=== PATIENT | male | born 1985 | race Two or more races ===

== ENCOUNTER 2016-04-20 09:39 | Emergency (ER) | payer MEDICAID ==
[2016-04-20 10:03] VITALS: BP 123/76; PULSE 67; RESP 18; TEMP 98.1; O2SAT 94
[2016-04-20] MEDS ORDERED: IBUPROFEN 800 MG TAB PO ONE (10:35)
--- NOTE | 2016-04-20 10:40 | UCPHY ---
H & P Time Seen by Provider: 04/20/16 10:05 Patient Type: New HPI/ROS: HPI Back pain. 30-year-old male by private vehicle. Patient reports he has been shoveling snow for the last 2 days. He complains of bilateral mid to lower back pain for the last 12-24 hours. Slightly worse with bending forward. Slightly worse on the left side. No bowel or bladder incontinence. No history of malignancy. No fever. No numbness or weakness in his lower extremities. ROS: Constitutional: No fever, no chills. No weakness. Musculoskeletal: As above. No neck pain. No extremity pain. Skin: No rashes. Neurological: No focal weakness or altered sensation. Past medical history: Appendectomy. [facility]. Social history: Here by himself. Physical Exam: General Appearance: Alert, no distress. This patient is responding to questions appropriately and in full sentences. This patient appears well- hydrated and well-nourished. Eyes: Pupils equal and round no pallor or injection. No lid edema, erythema or injection. Back exam: No midline thoracic, lumbar, sacral tenderness on palpation. Vague tenderness on palpation paraspinal soft tissues from mid thoracic spine to mid lumbar spine. Slightly greater on the left side versus the right side. No soft tissue changes. Negative same side and cross side straight leg raise test. He is neurologically intact in all myotomes in dermatomes of the bilateral lower extremities. The bilateral lower extremities are symmetrical in neurovascularly intact. Gastrointestinal: Abdomen is soft and nontender, no masses, bowel sounds normal. No focal tenderness at McBurney's point. No Anderson sign. Neurological: Motor sensory function is grossly intact. Cranial nerves are normal. Gait is normal. Skin: Warm and dry, no rashes. Extremities are symmetrical. All joints range without pain or impingement. Psychiatric: No agitation. No depression. Database: EKG: Imaging: Procedures: Emergency department course: After my evaluation, the patient was given 600 mg of ibuprofen. Plan will be to treat him with 3 days of high-dose ibuprofen and Flexeril. He is to follow up with his primary care physician for re-evaluation on Friday or Friday of this week. He is to return to Urgent Care for re-evaluation if his pain is persisting greater than 3 days. He endorses this plan. He feels comfortable going home. He was discharged in good condition. Differential Diagnosis: The differential diagnosis on this patient includes but is not limited to thoracic/lumbar strain. Epidural compression syndrome, acute radiculopathy, epidural abscess, AAA, fracture, subluxation, dislocation unlikely. This represents a partial list of diagnoses considered. These considerations are based on history, physical exam, past history and reassessment. Smoking Status: Never smoked Constitutional: Initial Vital Signs Temperature (C) 36.7 C 04/20/16 09:58 Heart Rate 67 04/20/16 09:58 Respiratory Rate 18 04/20/16 09:58 Blood Pressure 123/76 H 04/20/16 09:58 O2 Sat (%) 94 04/20/16 09:58 O2 Delivery Mode Room Air Allergies/Adverse Reactions: No Known Allergies Allergy (Verified 04/20/16 09:57) Home Medications: Medication Instructions Recorded Cyclobenzaprine [Flexeril 10 MG 10 mg PO TID #9 tab 04/20/16 (*)] MDM/Departure - Depart Disposition: Home, Routine, Self-Care Clinical Impression: Back pain Condition: Good Instructions: Back Pain (ED) Additional Instructions: Read and follow provided instructions. Follow-up with your primary care physician in 2-3 days for re-evaluation. Take medication as prescribed. Ibuprofen dosin mg every 6 hours with meals for the next 3 days only. Return to the emergency department or urgent care for worsening pain, bowel or bladder incontinence, numbness or weakness in your lower extremities, fever or other serious concerns. Prescriptions: Cyclobenzaprine [Flexeril 10 MG (*)] 10 mg PO TID #9 tab Referrals: [facility],. [Primary Care Provider] - As per Instructions - PQRS PQRS Measurement: Not applicable.
[2016-04-20] MEDS ORDERED: IBUPROFEN 200 MG TAB PO ONE (10:45)
== END 2016-04-20 10:51 | disposition home or self-care (01) ==
LOC: CED 09:39
DX: M54.9 Dorsalgia, unspecified (principal)
CPT/HCPCS: 99203-PO; G0463-PO

== ENCOUNTER 2016-05-04 12:02 | Emergency (ER) | payer MEDICAID ==
[2016-05-04 12:40] VITALS: BP 119/70; PULSE 88; RESP 16; TEMP 97.3; O2SAT 95
[2016-05-04] MEDS ORDERED: LETS SOLN TOPICAL 1 EA SYR TP ONE (12:41)
--- NOTE | 2016-05-04 12:44 | UCPHY ---
H & P Patient Type: Established HPI/ROS: CHIEF COMPLAINT: Left cheek laceration. HISTORY OF PRESENT ILLNESS: The patient is a 30-year-old male who presents after slipping on ice and lacerating his left cheek on broken glass earlier this morning. He is unsure if there is a piece of glass still stuck in the wound. He denies loss of consciousness. He has no pain with range of motion of his jaw. He denies other complaints. He is unsure about his tetanus status. He also notes that he has mild to moderate left lateral, posterior neck discomfort - no numbness or tingling paresthesias. There is no stinger involved at the time of the impact REVIEW OF SYSTEMS: Eyes: No diplopia. ENT: No sore throat. Cardiovascular: He did feel a little lightheaded after the impacted you initially started up but has since felt fine and did not have any prodrome prior to the event Gastrointestinal: No nausea vomiting or diarrhea. No abdominal pain. Musculoskeletal: No back pain. Neurological: No headache. Past Medical/Surgical History: Denies. Social History: Nonsmoker. Smoking Status: Never smoked Physical Exam: General Appearance: Alert, no distress. Afebrile. Normal phonation. No respiratory distress. Neurological: Ox3. No motor weakness. Sensation intact. Gait nl. Neck: Mild lateral mass tenderness. No posterior spinous tenderness or step- off. Ground level fall. Skin: Warm and dry, no rashes. There is a 2 cm v-shaped laceration of the midportion of left cheek with the tip of it currently in. Musculoskeletal: No joint swelling. Psychiatric: Patient is oriented X 3, there is no agitation Constitutional: Initial Vital Signs Temperature (C) 36.3 C 05/04/16 12:34 Heart Rate 88 05/04/16 12:34 Respiratory Rate 16 05/04/16 12:34 Blood Pressure 119/70 05/04/16 12:34 O2 Sat (%) 95 05/04/16 12:34 O2 Delivery Mode Room Air Allergies/Adverse Reactions: No Known Allergies Allergy (Verified 05/04/16 12:33) Home Medications: Medication Instructions Recorded NK [No Known Home Meds] 05/04/16 Medical Decision Making Procedures: Procedure: Laceration repair. Verbal consent was obtained from the patient. The 2 cm laceration on the left cheek was anesthetized in the usual fashion, with direct infiltration of 1% xylocaine with epinephrine. The wound was irrigated, draped, probed and explored to its base with a gloved finger, as well as forceps. There were no deep structures involved. No foreign body found. No tendon injury was identified. Patient warned regarding potential for retained foreign body. The wound was repaired with 6 0 nylon using pursestring as well as running sutures.. The wound repair was simple . The procedure was performed by myself. Differential Diagnosis: Cervical spine cleared by nexus criteria - Data Points Medications Given: Discontinued Medications Tetracaine/Epinephrine/Lidocaine (Lets Soln Topical) 1 ea TP EDNOW ONE Stop: 05/04/16 12:42 Last Admin: 05/04/16 13:05 Dose: 1 ea Departure - Departure Disposition: Home, Routine, Self-Care Clinical Impression: Laceration of left cheek Qualifiers: Encounter type: initial encounter Qualifier Code: (S01.412A) Laceration without foreign body of left cheek and temporomandibular area, initial encounter Condition: Good Instructions: Laceration (ED) Additional Instructions: Keep wound clean with hydrogen peroxide and apply Bacitracin ointment three times daily. Avoid prolonged immersion of stitches in water. Do not shave any part of your face while the sutures are in place. Return in 5 days for suture removal. Return to Urgent Care or the emergency department if you develop a fever, signs of infection, redness or discharge around the wound, or other serious worsening of condition. Referrals: [facility] [Outside] - As per Instructions - PQRS PQRS Measurement: Not applicable Report Scribed for: Mani Garay Report Scribed by: Tomás Norwood Date of Report: 05/04/16 Time of Report: 12:44
[2016-05-04] MEDS ORDERED: TDAP ADULT 0.5 ML INJ (BOOSTRIX) IM ONE (13:39)
== END 2016-05-04 13:50 | disposition home or self-care (01) ==
LOC: CED 12:02
PROC: 0HQ1XZZ Repair Face Skin, External Approach (ICD-10-PCS; principal; 2016-05-04)
DX: S01.412A Laceration without foreign body of left cheek and temporomandibular area, initial encounter (principal); W00.0XXA Fall on same level due to ice and snow, initial encounter; W25.XXXA Contact with sharp glass, initial encounter
CPT/HCPCS: 12011-PO; 99213-PO; G0463-PO

== ENCOUNTER 2016-07-15 08:18 | Emergency (ER) | payer MEDICAID ==
[2016-07-15 08:34] VITALS: PULSE 82; TEMP 98.6; O2SAT 95
--- NOTE | 2016-07-15 09:01 | UCPHY ---
H & P Patient Type: Established Chief Complaint Nursing Narrative: left sided lower back pain no trauma. started on the right side last , now that is better but the left side is 10/10 pain now Time Seen by Provider: 07/15/16 08:44 HPI/ROS: CHIEF COMPLAINT: Low back pain HISTORY OF PRESENT ILLNESS: Patient is a 30-year-old man who comes to the Urgent Care complaining of left low back pain. He states that 4 days ago he had pain in his right lower back with that is now resolved and is now in his left lower back. He denies any significant injury or trauma. 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 He does not have any radiation of the pain. No bowel or bladder abnormalities. No history of malignancy or IV drug abuse. Fevers. No urinary symptoms. REVIEW OF SYSTEMS: Constitutional: denies: chills, fever, recent illness, recent injury EENTM: denies: blurred vision, double vision, nose congestion Respiratory: denies: cough, shortness of breath Cardiac: denies: chest pain, irregular heart rate, lightheadedness, palpitations Gastrointestinal/Abdominal: denies: abdominal pain, diarrhea, nausea, vomiting, blood streaked stools Genitourinary: denies: dysuria, frequency, hematuria, pain Musculoskeletal: See HPI Skin: denies: lesions, rash, jaundice, bruising Neurological: denies: headache, numbness, paresthesia, tingling, dizziness, weakness Hematologic/Lymphatic: denies: blood clots, easy bleeding, easy bruising Immunologic/allergic: denies: HIV/AIDS, transplant EXAM: GENERAL: Well-appearing, well-nourished and in no acute distress. HEAD: Atraumatic, normocephalic. EYES: Pupils equal round and reactive to light, extraocular movements intact, sclera anicteric, conjunctiva are normal. ENT: TMs normal, nares patent, oropharynx clear without exudates. Moist mucous membranes. NECK: Normal range of motion, supple without lymphadenopathy or JVD. LUNGS: Breath sounds clear to auscultation bilaterally and equal. No wheezes rales or rhonchi. HEART: Regular rate and rhythm without murmurs, rubs or gallops. ABDOMEN: Soft, nontender, normoactive bowel sounds. No guarding, no rebound. No masses appreciated. BACK: Left low back pain/gluteal pain. No tenderness to palpation. Pain with movement. EXTREMITIES: Normal range of motion, no pitting or edema. No clubbing or cyanosis. NEUROLOGICAL: Cranial nerves II through XII grossly intact. Normal speech, normal gait. 5/5 strength, normal movement in all extremities, normal sensation PSYCH: Normal mood, normal affect. SKIN: Warm, dry, normal turgor, no visible rashes or lesions. Source: Patient - Personal History Current Tetanus/Diphtheria Vaccine: Yes Current Tetanus Diphtheria and Acellular Pertussis (TDAP): Yes Tetanus Vaccine Date: WITHIN 10 YRS - Medical/Surgical History Hx Asthma: No Hx Chronic Respiratory Disease: No Hx Diabetes: No Hx Cardiac Disease: No Hx Renal Disease: No Hx Cirrhosis: No Hx Alcoholism: No Hx HIV/AIDS: No Hx Splenectomy or Spleen Trauma: No Other PMH: Med hx-Asthma during summer with grass. Surg-appy - Family History Significant Family History: No pertinent family hx - Social History Smoking Status: Never smoked Alcohol Use: Sober Drug Use: None Constitutional: Initial Vital Signs Temperature (C) 37 C 07/15/16 08:28 Heart Rate 82 07/15/16 08:28 Respiratory Rate 20 07/15/16 08:28 Blood Pressure 153/65 H 07/15/16 08:28 O2 Sat (%) 95 07/15/16 08:28 O2 Delivery Mode Room Air Allergies/Adverse Reactions: No Known Allergies Allergy (Verified 07/15/16 08:28) Home Medications: Medication Instructions Recorded Metaxalone [Skelaxin 800 mg (*)] 800 mg PO TID PRN #12 tab 07/15/16 Medical Decision Making Procedures: Trigger point injection: The patient was injected with 10 cc of 0.5% bupivacaine to his left lower back spina rectus muscle. He and satisfactory improvement. ED Course/Re-evaluation: This patient's symptoms are consistent with musculoskeletal low back pain. Treat him with a trigger point injection with good success. I will prescribe him muscle relaxants and he is asking for a few days off work. He is happy with this and declines further workup or testing at this point. No indication for imaging. No red flags for spinal cord injury. Differential Diagnosis: Partial list of the Differential diagnosis considered include but were not limited to; low back pain, muscle strain and although unlikely based on the history and physical exam, I also considered radiculopathy, cauda equina syndrome, infection, diskitis, fracture, tumor or mass, urinary tract infection , kidney stone. I discussed these differential diagnoses and the plan with the patient as well as the usual and expected course. The patient understands that the diagnosis is provisional and that in medicine we are not always correct and that further workup is often warranted. Usual and customary warnings were given. All of the patient's questions were answered. The patient was instructed to return to the emergency department should the symptoms at all worsen or return, otherwise to followup with the physician as we discussed. Departure - Departure Disposition: Home, Routine, Self-Care Clinical Impression: Low back pain Qualifiers: Chronicity: acute Back pain laterality: left Sciatica presence: without sciatica Qualified Code(s): M54.5 - Low back pain Condition: Fair Instructions: Low Back Strain (ED) Referrals: [facility],. [Primary Care Provider] - As per Instructions Stand Alone Forms: Work Excuse Prescriptions: Metaxalone [Skelaxin 800 mg (*)] 800 mg PO TID PRN #12 tab PRN Reason: Spasms - PQRS PQRS Measurement: Not applicable
[2016-07-15 09:10] VITALS: BP 143/71; RESP 18
== END 2016-07-15 09:17 | disposition home or self-care (01) ==
LOC: CED 08:18
PROC: 3E023BZ Introduction of Anesthetic Agent into Muscle, Percutaneous Approach (ICD-10-PCS; principal; 2016-07-15)
DX: M54.5 Low back pain (principal)
CPT/HCPCS: 20552-PO; 99214-PO; G0463-PO

== ENCOUNTER 2016-07-18 19:26 | Emergency (ER) | payer MEDICAID ==
[2016-07-18 19:46] VITALS: BP 135/72; PULSE 87; RESP 18; TEMP 98.4; O2SAT 96
[2016-07-18] MEDS ORDERED: IBUPROFEN 200 MG TAB PO ONE (20:11)
--- NOTE | 2016-07-18 20:57 | UCPHY ---
H & P Time Seen by Provider: 07/18/16 19:58 Patient Type: Established HPI/ROS: This patient returns with low back pain described as achy, bilateral lumbar paraspinous location left-sided more than right. The pain worsens when he walks or stands. He reports that is severe intensity. He was seen here in the clinic on July 15, 3 days prior to this visit with trigger point injection by Dr. Yoel sullivan on Skelaxin. The patient reports that he had partial relief of discomfort initially after that visit but reports the pain is recurred and more severe now. He however has not taken any medication today. He explains that he did not feel that he was getting relief from Skelaxin or ibuprofen. His last dose of ibuprofen 400 mg yesterday. 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 He was doing this prior to the onset of the back pain is not certain that was directly related to that work. The pain does not radiate. ROS: No fevers or chills. He reports no HEENT complaints. No pulmonary complaints. Cardiovascular: No belly pain. GI: No nausea vomiting. : No hematuria. Neuro: No numbness tingling or focal weakness. Integumentary: No skin rash. 10 point ROS is otherwise negative. Past Medical/Surgical History: Otherwise healthy exception of the recent low back strain visit here to the clinic on 07/15/2016. Smoking Status: Never smoked Physical Exam: Physical Exam Vital signs are normal. General: No acute distress HEENT: Atraumatic. Eyes: Pupils equal and react to light. Extraocular motions are intact. Lungs: No respiratory distress. Cardiac: Brisk capillary refill is intact throughout. Pulses are 2+ and symmetric in the affected extremity. Back: No significant midline tenderness so does have mild L4-5 region midline tenderness. He has more tenderness in the paraspinous regions bilaterally with paraspinous muscular spasm left more than right. He has limited range of motion in forward flexion only bending to about 20 before having increased pain. He had extend without much difficulty, and lateral flex without difficulty. Straight leg raise is negative bilaterally. He is able to sit up on his own accord without significant midline back pain Abdomen: Soft, nontender, no pulsatile masses Skin: No rash or pallor. Specifically, there is no erythema to the low back area or other rash. Neuro: Alert and oriented x3 . He has normal light touch sensory exam bilateral lower extremities, 5/5 strength in great toe dorsiflexion plantar flexion bilaterally. 2+ symmetric patellar and Achilles DTRs bilaterally - no sensorimotor deficits. ROS: Low back strain question repetitive versus isolated incident, disc herniation, paraspinous abscess, doubt kidney stone. Constitutional: Initial Vital Signs Temperature (C) 36.9 C 07/18/16 19:44 Heart Rate 87 07/18/16 19:44 Respiratory Rate 18 07/18/16 19:44 Blood Pressure 135/72 H 07/18/16 19:44 O2 Sat (%) 96 07/18/16 19:44 O2 Delivery Mode Room Air Allergies/Adverse Reactions: No Known Allergies Allergy (Verified 07/18/16 19:44) Home Medications: Medication Instructions Recorded Metaxalone [Skelaxin 800 mg (*)] 800 mg PO TID PRN #12 tab 07/15/16 Advil 07/18/16 Ibuprofen [Motrin (*)] 600 mg PO Q6 PRN #30 tab 07/18/16 Methocarbamol [Robaxin 750 mg (*)] 750 - 1,500 mg PO QID PRN #30 tab 07/18/16 traMADol [Ultram 50 mg (*)] 50 - 100 mg PO Q4 PRN #20 tab 07/18/16 MDM/Departure - MDM Diagnostics: Lumbar spine x-ray: Normal by my interpretation with exception of loss of lordosis and very minimal anterior endplate narrowing to the L1-T12 Dr. Low- radiologist read this as likely the developmental normal variant rather than compression fracture. Medications Given: Discontinued Medications Diazepam (Valium 5 Mg Prepack#4) 1 btl TAKEHOME EDNOW ONE Stop: 07/18/16 21:08 Last Admin: 07/18/16 21:07 Dose: 1 btl Ibuprofen (Motrin) 600 mg PO EDNOW ONE Stop: 07/18/16 20:12 Last Admin: 07/18/16 20:32 Dose: 600 mg ED Course/Re-evaluation: I counseled patient regarding low back stretches and strengthening exercises and counseled regarding low back strain. Will try him on methocarbamol and tramadol as well as ibuprofen. No evidence of cauda equina, infectious etiology or other concerning findings. - Depart Disposition: Home, Routine, Self-Care Clinical Impression: Repetitive strain injury of lower back Qualifiers: Encounter type: initial encounter Qualified Code(s): S39.012A - Strain of muscle, fascia and tendon of lower back, initial encounter Condition: Good Instructions: Diazepam (By mouth), Low Back Strain (ED) Additional Instructions: DX: Low back strain Plan: Ibuprofen 400-600 mg per 6 hours regularly for the next week then as needed. Methocarbamol muscle relaxants as needed. Tramadol or Tylenol as needed for pain. No driving alcohol or work on methocarbamol or tramadol Starts daily stretches prior to taking muscle relaxants and tramadol in the morning. 3-5 minutes each of: "Butterfly stretch," "Sphinx stretch", "pigeon stretch", and hamstring stretch. Avoid lifting more than 5-10 pounds until symptoms improve. Call your primary care physician for a followup appointment in 3-7 days. Go to the emergency department for worsening of your symptoms despite the treatment plan. Stand Alone Forms: Work Limited Duty, Work Excuse Prescriptions: Ibuprofen [Motrin (*)] 600 mg PO Q6 PRN #30 tab PRN Reason: Pain Methocarbamol [Robaxin 750 mg (*)] 750 - 1,500 mg PO QID PRN #30 tab PRN Reason: Muscle Spasms traMADol [Ultram 50 mg (*)] 50 - 100 mg PO Q4 PRN #20 tab PRN Reason: back pain Referrals: Hanna Mendez MD [Medical Doctor] - As per Instructions - PQRS PQRS Measurement: NA
[2016-07-18] MEDS ORDERED: DIAZEPAM 5 MG PREPACK#4 BTL TAKEHOME ONE ×2 (21:05→21:07)
== END 2016-07-18 21:08 | disposition home or self-care (01) ==
LOC: CED 19:26
DX: S39.012A Strain of muscle, fascia and tendon of lower back, initial encounter (principal); X58.XXXA Exposure to other specified factors, initial encounter
CPT/HCPCS: 72100-PO; 99214-PO; G0463-PO

== ENCOUNTER 2016-12-12 10:14 | Inpatient (IN) | payer MEDICAID ==
[2016-12-12] MEDS ORDERED: HYDROmorphONE/DILAUDID 1 MG/ML SYR IVP ONE ×2 (10:23→11:36)
[2016-12-12] MEDS ORDERED: NS 1,000 ML IV ONE (10:23)
[2016-12-12] MEDS ORDERED: ONDANSETRON 4 MG/2 ML VIAL IVP ONE (10:23)
[2016-12-12] MEDS ORDERED: FAMOTIDINE 20 MG in NS 100 ML IV ONE (10:23)
--- NOTE | 2016-12-12 10:28 | EDPHY ---
H & P Time Seen by Provider: 12/12/16 10:19 HPI/ROS: HPI Abdominal pain. 31-year-old male by private vehicle. This patient complains of worsening mid abdominal pain since 2:00 a.m.. He describes the pain is deep, cramping and throughout his abdomen. He describes it as constant. No back pain. He has had nausea but no vomiting. Last meal was last night at approximately 8:00 p.m.. Last bowel movement was yesterday. No associated diarrhea. No bloody or melenic stool. He has had this abdominal pain in the past and has been seen in the emergency department for but not here. He denies a history of peptic ulcer disease. He has had an appendectomy. ROS: Constitutional: No fever, no chills. No weakness. Eyes: No discharge. No changes in vision. ENT: No sore throat. No nasal congestion or rhinorrhea. Respiratory: No cough. No shortness of breath. Cardiac: No chest pain, no palpitations. Gastrointestinal: As above. Genitourinary: No hematuria. No dysuria or increased frequency with urination. Musculoskeletal: No back pain. No neck pain. No myalgias or arthralgias. Skin: No rashes. Neurological: No headache. No focal weakness or altered sensation. Past medical history: Seasonal asthma. Appendectomy. Primary care is at [facility]. Social history: Nonsmoker. Denies alcohol. Denies IV drugs or street drugs. Physical Exam: General Appearance: Alert, he appears uncomfortable. This patient is responding to questions appropriately and in full sentences. This patient appears well-hydrated and well-nourished. Eyes: Pupils equal and round no pallor or injection. No lid edema, erythema or injection. Respiratory: There are no retractions, lungs are clear to auscultation with good air movement bilaterally. Cardiovascular: Regular rate and rhythm. No murmur. Gastrointestinal: Abdomen is soft with vague tenderness throughout but more in the mid section and right upper quadrant, no masses, bowel sounds normal. No focal tenderness at McBurney's point. No Anderson sign. Neurological: Motor sensory function is grossly intact. Cranial nerves are normal. Gait is normal. Skin: Warm and dry, no rashes. Musculoskeletal: Neck is supple and nontender. Extremities are symmetrical. All joints range without pain or impingement. Psychiatric: No agitation. No depression. Database: EKG: Imaging: CT scan of abdomen and pelvis with IV contrast: Gallbladder wall thickening with surrounding edema. No gallstones visualized. CT appears to show an acalculous cholecystitis. Radiologist recommends ultrasound of the gallbladder to further evaluate. CT scan otherwise normal. No biliary obstruction. Results discussed with staff radiologist Dr. Cruz Bhandari. Right upper quadrant ultrasound: Small gallstone seen with sludge. Wall is thickened 5 mm, small pericholecystic fluid. Results were discussed with staff radiologist Dr. Salomon Cárdenas. Procedures: Emergency department course: IV placed. He was placed on a monitor. He was started on IV normal saline with 1 L to be given over the next hour. He was initially given 4 mg of IV Zofran, 20 mg of IV Pepcid and 1 mg of IV hydromorphone. 11:35 a.m., patient has returned from CT. He states that his pain is starting to come back. He was given an additional 0.5 mg of IV hydromorphone. 12:55 p.m., discussed case with on-call general surgeon Dr. George Mukherjee. He accepts this patient for admission to [facility] and surgical management. 1:00 p.m., results of ultrasound reviewed with the patient. He has been NPO. Need for operative management discussed with him. All of his questions were answered. He will be admitted directly to Dr. Mukherjee. His remaining emergency department course under my care has been uneventful. He was transferred to [facility] in stable condition. Differential Diagnosis: The differential diagnosis on this patient includes but is not limited to peptic ulcer disease, gastritis, pancreatitis, cholecystitis. Appendicitis, volvulus, other surgical etiology unlikely. This represents a partial list of diagnoses considered. These considerations are based on history, physical exam , past history, reassessment and diagnostic testing. Smoking Status: Never smoked Constitutional: Initial Vital Signs Temperature (C) 36.4 C 12/12/16 10:18 Heart Rate 64 12/12/16 10:18 Respiratory Rate 28 H 12/12/16 10:18 Blood Pressure 160/92 H 12/12/16 10:18 O2 Sat (%) 100 12/12/16 10:18 O2 Delivery Mode Nasal Cannula O2 (L/minute) 2 Allergies/Adverse Reactions: No Known Allergies Allergy (Verified 12/12/16 10:17) Home Medications: Medication Instructions Recorded NK [No Known Home Meds] 12/12/16 Medical Decision Making - Diagnostics Imaging Results: Imaging Impressions Abdomen CT 12/12/16 10:23 Impression: Active acalculous cholecystitis. Consider ultrasound to evaluate for noncalcified gallstones. Results called and discussed with Jung Abebe MD, at 12/12/2016 11:49 General information for patients regarding this examination can be found at [email or web address]. If you have questions or comments about this report, please contact me at [phone] (hospital) or [phone] ([facility]). Abdomen Ultrasound 12/12/16 11:50 Impression: 1. Cholelithiasis with gallbladder sludge and wall thickening, suggestive of acute cholecystitis. No evidence of intrahepatic or extra hepatic biliary dilatation. Results called to Dr. Tineo at 12:45 PM. - Data Points Laboratory Results: Laboratory Results 12/12/16 10:38 12/12/16 10:38 12/12/16 12/12/16 10:38 10:38 WBC 17.43 10^3/uL H 10^3/uL (3.80-9.50) RBC 5.50 10^6/uL 10^6/uL (4.40-6.38) Hgb 17.1 g/dL g/dL (13.7-17.5) Hct 48.2 % % (40.0-51.0) MCV 87.6 fL fL (81.5-99.8) MCH 31.1 pg pg (27.9-34.1) MCHC 35.5 g/dL g/dL (32.4-36.7) RDW 12.2 % % (11.5-15.2) Plt Count 285 10^3/uL 10^3/uL (150-400) MPV 9.8 fL fL (8.7-11.7) Neut % (Auto) 84.0 % H % (39.3-74.2) Lymph % (Auto) 10.2 % L % (15.0-45.0) Gillespie % (Auto) 5.2 % % (4.5-13.0) Eos % (Auto) 0.1 % L % (0.6-7.6) Baso % (Auto) 0.2 % L % (0.3-1.7) Nucleat RBC Rel Count 0.0 % % (0.0-0.2) Absolute Neuts (auto) 14.65 10^3/uL H 10^3/uL (1.70-6.50) Absolute Lymphs (auto) 1.77 10^3/uL 10^3/uL (1.00-3.00) Absolute Monos (auto) 0.90 10^3/uL H 10^3/uL (0.30-0.80) Absolute Eos (auto) 0.02 10^3/uL L 10^3/uL (0.03-0.40) Absolute Basos (auto) 0.03 10^3/uL 10^3/uL (0.02-0.10) Absolute Nucleated RBC 0.00 10^3/uL 10^3/uL (0-0.01) Immature Gran % 0.3 % % (0.0-1.1) Immature Gran # 0.06 10^3/uL 10^3/uL (0.00-0.10) Sodium 143 mEq/L mEq/L (134-144) Potassium 3.8 mEq/L mEq/L (3.5-5.2) Chloride 104 mEq/L mEq/L (97-110) Carbon Dioxide 23 mEq/l mEq/l (22-31) Anion Gap 16 mEq/L mEq/L (8-16) BUN 10 mg/dL mg/dL (7-23) Creatinine 0.8 mg/dL mg/dL (0.7-1.3) Estimated GFR > 60 Glucose 119 mg/dL H mg/dL (70-100) Calcium 10.2 mg/dL mg/dL (8.5-10.4) Total Bilirubin 0.8 mg/dL mg/dL (0.1-1.4) Conjugated Bilirubin 0.4 mg/dL mg/dL (0.0-0.5) Unconjugated Bilirubin 0.4 mg/dL mg/dL (0.0-1.1) AST 26 IU/L IU/L (17-59) ALT 37 IU/L IU/L (21-72) Alkaline Phosphatase 107 IU/L IU/L (38-126) Total Protein 8.5 g/dL H g/dL (6.3-8.2) Albumin 4.7 g/dL g/dL (3.5-5.0) Lipase 64 IU/L IU/L (23-300) Medications Given: Discontinued Medications Hydromorphone HCl (Dilaudid) 1 mg IVP EDNOW ONE Stop: 12/12/16 10:24 Last Admin: 12/12/16 10:52 Dose: 1 mg Hydromorphone HCl (Dilaudid) 0.5 mg IVP EDNOW ONE Stop: 12/12/16 11:37 Last Admin: 12/12/16 11:45 Dose: 0.5 mg Sodium Chloride (Ns) 1,000 mls @ 0 mls/hr IV EDNOW ONE; Wide Open PRN Reason: Protocol Stop: 12/12/16 10:24 Last Admin: 12/12/16 10:38 Dose: 1,000 mls Famotidine 20 mg/ Sodium (Chloride) 102 mls @ 408 mls/hr IV EDNOW ONE Stop: 12/12/16 10:37 Last Admin: 12/12/16 10:54 Dose: 102 mls Ondansetron HCl (Zofran) 4 mg IVP EDNOW ONE Stop: 12/12/16 10:24 Last Admin: 12/12/16 10:48 Dose: 4 mg Departure - Departure Disposition: [facility] Acute Clinical Impression: Abdominal pain, Acute cholecystitis
[2016-12-12] MEDS ORDERED: IOPAMIDOL (ISOVUE-300) 100 ML BTL ONE (10:37)
[2016-12-12 10:48] LABS: % IMMATURE GRANULYOCYTES 0.3 % (0.0-1.1); ABSOLUTE IMMATURE GRANULOCYTES 0.06 10^3/uL (0.00-0.10); ADD DIFF? NO; ADD MORPH? NO; ADD SCAN? NO; ATYPICAL LYMPHOCYTE FLAG 10 (0-99); FRAGMENT RBC FLAG 0 (0-99); HEMATOCRIT 48.2 % (40.0-51.0); HEMOGLOBIN 17.1 g/dL (13.7-17.5); LEFT SHIFT FLG 0 (0-99); LIPEMIA HEMOLYSIS FLAG 90 (0-99); MEAN CELL HEMOGLOBIN 31.1 pg (27.9-34.1); MEAN CELL HEMOGLOBIN CONCENTR. 35.5 g/dL (32.4-36.7); MEAN CELL VOLUME 87.6 fL (81.5-99.8); MEAN PLATELET VOLUME 9.8 fL (8.7-11.7); PLATELET CLUMPS FLAG 0 (0-99); PLATELET COUNT 285 10^3/uL (150-400); RED CELL DISTRIBUTION WIDTH 12.2 % (11.5-15.2)
[2016-12-12 11:03] LABS: ALANINE AMINOTRANSFERASE 37 IU/L (21-72); ALBUMIN 4.7 g/dL (3.5-5.0); ALKALINE PHOSPHATASE 107 IU/L (38-126); ANION GAP 16 mEq/L (8-16); ASPARTATE AMINOTRANSFERASE 26 IU/L (17-59); BILIRUBIN,TOTAL 0.8 mg/dL (0.1-1.4); BILIRUBIN-CONJUGATED 0.4 mg/dL (0.0-0.5); BILIRUBIN-UNCONJUGATED 0.4 mg/dL (0.0-1.1); CALCIUM 10.2 mg/dL (8.5-10.4); CARBON DIOXIDE 23 mEq/l (22-31); CHLORIDE 104 mEq/L (97-110); CREATININE 0.8 mg/dL (0.7-1.3); GLOMERULAR FILTRATION RATE > 60; GLUCOSE 119 mg/dL (70-100); POTASSIUM 3.8 mEq/L (3.5-5.2); SODIUM 143 mEq/L (134-144); TOTAL PROTEIN 8.5 g/dL (6.3-8.2)
[2016-12-12] MEDS ORDERED: DEXAMETHASONE 4 MG/ML VIAL ONE (14:56)
[2016-12-12] MEDS ORDERED: fentaNYL 100 MCG/2 ML INJ ONE ×3 (14:56→18:07)
[2016-12-12] MEDS ORDERED: ROCURONIUM 100 MG/10 ML VIAL ONE (14:56)
[2016-12-12] MEDS ORDERED: ONDANSETRON 4 MG/2 ML VIAL ONE ×2 (14:56→18:07)
[2016-12-12] MEDS ORDERED: PROPOFOL 200 MG/20 ML VIAL ONE (14:56)
[2016-12-12] MEDS ORDERED: LIDOCAINE 2% 5 ML SDV ONE (14:56)
[2016-12-12] MEDS ORDERED: BUPIVACAINE 0.5% 30 ML SDV ONE (15:20)
[2016-12-12] MEDS ORDERED: HEPARIN 1000 UNIT/1 ML MDV ONE ×2 (15:20→15:21)
[2016-12-12] MEDS ORDERED: ceFAZolin 1 GM/5 ML SYR ONE (15:21)
[2016-12-12] MEDS ORDERED: CEFAZOLIN 1 GM/DEXTROSE/50 ML BAG IV ONE (15:49)
--- NOTE | 2016-12-12 15:54 | PDANEPAE ---
ANE History of Present Illness RUQ p/f lap ccy ANE Past Medical History - Cardiovascular History Hx Hypertension: No Hx Arrhythmias: No Hx Chest Pain: No Hx Coronary Artery / Peripheral Vascular Disease: No Hx CHF / Valvular Disease: No Hx Palpitations: No - Pulmonary History Hx COPD: No Hx Asthma/Reactive Airway Disease: No Hx Recent Upper Respiratory Infection: No Hx Oxygen in Use at Home: No Hx Sleep Apnea: No - Endocrine History Hx Diabetes: No ANE Review of Systems Review of systems is: negative - Exercise capacity Exercise capacity: >=4 METS ANE Patient History - Allergies Allergies/Adverse Reactions: No Known Allergies Allergy (Verified 12/12/16 10:17) - Home Medications Home medications: home medication list seen and reviewed Home Medications: NK [No Known Home Meds] 12/12/16 [Last Taken Unknown] - NPO status NPO Since - Liquids (Date): 12/12/16 NPO Since - Liquids (Time): 10:00 NPO Since - Solids (Date): 12/11/16 NPO Since - Solids (Time): 12:00 - Anes Hx Anes Hx: no prior problems - Smoking Hx Smoking Status: Never smoked ANE Labs/Vital Signs - Labs Result Diagrams: 12/12/16 10:38 12/12/16 10:38 - Vital Signs Blood Pressure: 132/86 Heart Rate: 73 Respiratory Rate: 16 O2 Sat (%): 98 Height: 190.5 cm Weight: 83.915 kg ANE Physical Exam - Airway Neck exam: FROM Mallampati Score: Class 1 Mouth exam: normal dental/mouth exam - Pulmonary Pulmonary: no respiratory distress - Cardiovascular Cardiovascular: regular rate and rhythym - ASA Status ASA Status: I ANE Anesthesia Plan Anesthesia Plan: general endotracheal anesthesia
[2016-12-12] MEDS ORDERED: MIDAZOLAM 2 MG/2 ML VIAL IVP ONE (15:55)
[2016-12-12] MEDS ORDERED: ERTAPENEM 1 GM in NS 100 ML IV ONE (16:00)
--- NOTE | 2016-12-12 16:31 | PDHPUP ---
History & Physical Update H&P update statement: This history and physical update is based on an assessment of the patient which was completed after admission or registration (within 24 hours), but prior to the surgery/procedure. H&P update: H&P reviewed & patient examined, no change in patient's condition since H&P completed
[2016-12-12] MEDS ORDERED: fentaNYL 100 MCG/2 ML INJ IVP PRN (17:23)
[2016-12-12] MEDS ORDERED: ONDANSETRON 4 MG/2 ML VIAL IVP PRN ×3 (17:23→18:42)
[2016-12-12] MEDS ORDERED: OXYCODONE/APAP 5/325 TAB PO PRN (17:23)
[2016-12-12] MEDS ORDERED: DEXAMETHASONE 4 MG/ML VIAL IVP PRN (17:23)
[2016-12-12] MEDS ORDERED: ACETAMINOPHEN 500 MG TAB PO PRN (17:23)
[2016-12-12] MEDS ORDERED: NALOXONE HCL 0.4 MG/ML INJ IVP PRN (17:23)
[2016-12-12] MEDS ORDERED: METOCLOPRAMIDE 10 MG/2 ML VIAL IVP PRN (17:23)
[2016-12-12] MEDS ORDERED: HYDROmorphONE/DILAUDID 1 MG/ML SYR IVP PRN (17:23)
--- NOTE | 2016-12-12 17:54 | POSTOPPROG ---
Post Op Note Date of Operation: 12/12/16 Surgeon: George Mukherjee Financial Services Officer: Sabrina Pina Anesthesiologist: Tracy Anesthesia: GET(General Endotracheal) Pre-op Diagnosis: cholelithiasis, cholecystitis Post-op Diagnosis: same Indication: RUQ pain Procedure: laproscopic cholecystectomy Inf/Abcess present in the surg proc area at time of surgery?: No Depth: Organ Space EBL: Minimal Specimen(s): gallbladder
--- NOTE | 2016-12-12 18:02 | POSTANESTH ---
Post Anesthetic Evaluation Cardiovascular Status: Normal, Stable Respiratory Status: Normal, Stable Level of Consciousness/Mental Status: Can Participate in Eval Pain Control: Adequate, Prn Tx Ordered Nausea/Vomiting Control: Adequate, Prn Tx Ordered Complications Possibly Related to Anesthesia: None Noted
[2016-12-12] MEDS ORDERED: ACETAMINOPHEN 325 MG TAB PO PRN (18:42)
[2016-12-12] MEDS ORDERED: ONDANSETRON DISINTEGRATING 4 MG TAB PO PRN (18:42)
[2016-12-12] MEDS ORDERED: NS 1,000 ML IV SCH (18:45)
--- NOTE | 2016-12-12 18:57 | GOP ---
[f rep st] OPERATIVE REPORT DATE OF OPERATION: 12/12/2016 SURGEON: George Mukherjee MD CLINICAL INFORMATICS SPECIALIST: Sabrina Pina PA-C. ANESTHESIA: Karan Molina M.D. PREOPERATIVE DIAGNOSIS: Acute cholecystitis and cholelithiasis. POSTOPERATIVE DIAGNOSIS: Acute cholecystitis and cholelithiasis. PROCEDURE PERFORMED: Laparoscopic cholecystectomy. FINDINGS: The patient was found to have hydrops of the gallbladder with significant adhesions to th e gallbladder, small stones and small ducts. DESCRIPTION OF PROCEDURE: PROCEDURE: The patient was taken to the operating room where he received satisfactory general endot dixie anesthesia by Dr. Molina. He was prepped and draped in the usual sterile fashion. An inf raumbilical incision was made. A Veress needle was inserted. Pneumoperitoneum was established. Th e laparoscope was introduced, good visualization was obtained. Three other trocars were placed in t he upper abdomen under direct vision. The gallbladder was elevated up. Adhesions were taken down w ith electrocautery until the entire gallbladder could be exposed. The cystic triangle was carefully dissected free with care to avoid injury to the common bile duct. A good clear view was obtained. Both structures were isolated and multiply hemoclipped and divided with care to avoid injury to the common duct. The peritoneum of the gallbladder was incised. The gallbladder was dissected free fr om the bed of the hepatic fossa using electrocautery and it was extracted through the upper midline port site. The wound was irrigated. Hemostasis was assured. Trocars were removed under direct vision. Trocar sites were closed with 0 Vicryl for the fascia, 4-0 Monocryl subcuticular stitch for the skin. All layers were infiltrated with 0.5% Marcaine. Estimated blood loss was approximately 50 cc. No complications. /[id number]/MODL
[2016-12-12] MEDS: HYDROmorphONE/DILAUDID 1 MG/ML SYR IVP PRN ×4 (19:23→23:25)
[2016-12-13] MEDS: HYDROmorphONE/DILAUDID 1 MG/ML SYR IVP PRN ×3 (01:43→05:59)
[2016-12-13 05:20] LABS: % IMMATURE GRANULYOCYTES 0.5 % (0.0-1.1); ABSOLUTE IMMATURE GRANULOCYTES 0.06 10^3/uL (0.00-0.10); ADD DIFF? NO; ADD MORPH? NO; ADD SCAN? NO; ATYPICAL LYMPHOCYTE FLAG 10 (0-99); FRAGMENT RBC FLAG 0 (0-99); HEMATOCRIT 41.8 % (40.0-51.0); HEMOGLOBIN 14.2 g/dL (13.7-17.5); LEFT SHIFT FLG 0 (0-99); LIPEMIA HEMOLYSIS FLAG 90 (0-99); MEAN CELL HEMOGLOBIN 31.3 pg (27.9-34.1); MEAN CELL VOLUME 92.3 fL (81.5-99.8); MEAN PLATELET VOLUME 10.5 fL (8.7-11.7); PLATELET CLUMPS FLAG 10 (0-99); PLATELET COUNT 233 10^3/uL (150-400); RED BLOOD CELL COUNT 4.53 10^6/uL (4.40-6.38); RED CELL DISTRIBUTION WIDTH 12.7 % (11.5-15.2)
[2016-12-13] MEDS: OXYCODONE/APAP 5/325 TAB PO PRN ×3 (08:44→16:59)
--- NOTE | 2016-12-13 10:13 | SOAPPROG ---
SOAP Progress Note Assessment/Plan: Assessment: 31yo male POD #1 s/p laparoscopic cholecystectomy. Recovering well. Continue pain control with Percocet and ice packs. Regular diet Dispo: to home today or tomorrow dependent on social issue of if he has a place to go tonight. S: patient c/o 9/10 incisional pain. Denies F/C, N/V/D/C, SOB. Passing flatus. O: Afebrile Patient lying comfortably in bed, NAD Lungs CTAB, no increased WOB Abdomen is soft, nondistended. Moderately TTP near incision sites Lap incisions are intact with clean/dry steri strips Objective: Vital Signs Temp Pulse Resp BP Pulse Ox 36.4 C 71 18 124/71 H 95 12/13/16 07:21 12/13/16 07:21 12/13/16 07:21 12/13/16 07:21 12/13/16 07:21 Microbiology 12/12/16 Unknown Gram Stain - Final Gallbladder - Eswab Laboratory Results 12/13/16 04:38 12/12/16 12/13/16 12/14/16 05:59 05:59 05:59 Intake Total 3100 Output Total 1010 Balance 2090 ICD10 Worksheet Patient Problems: Problems Problem Status Onset Abdominal pain Acute Acute cholecystitis Acute
--- NOTE | 2016-12-13 14:09 | ASMTCASEMG ---
Living Arrangements What is your living Answers: Alone arrangement? Who do you live with? Type Of Residence Type of Residence Facility Name Notes: Pt has been recently living in car. Discharge Plan Comments Coordination Status Comments Notes: Spoke w/pt re; dc poc. Pt states was unable to keep the room he was renting d/t a series of unfortunate events. Has been sleeping in car, but says he can stay with his sister tomorrow night. 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 CM notified surgical PA, she will dc pt tomorrow, CM available for any changes. Date Signed: 12/13/2016 02:08 PM Electronically Signed By:Sara Pradhan
[2016-12-13] MEDS ORDERED: diphenhydrAMINE 25 MG CAP PO PRN (20:12)
[2016-12-13] MEDS: HYDROCODONE/APAP 5/325 TAB PO PRN (23:04)
[2016-12-14] MEDS: HYDROCODONE/APAP 5/325 TAB PO PRN (07:32)
[2016-12-14] MEDS: ENOXAPARIN 40 MG/0.4 ML SYR SC SCH (07:35)
[2016-12-14] MEDS ORDERED: HYDROCODONE/APAP 5/325 TAB PO PRN (08:55)
[2016-12-14] MEDS: HYDROmorphONE/DILAUDID 1 MG/ML SYR IVP PRN ×2 (09:13→15:14)
--- NOTE | 2016-12-14 10:00 | SOAPPROG ---
SOAP Progress Note Assessment/Plan: Assessment/Plan: 31 Y M s/p lap desiree. POD#2. Pain. Suspect normal post op pain--may need to play "catch up". Doubt leak or retained stone--eating well, afebrile, no nausea. Adjustments to pain meds made. Seen and examined with Dr. Kc. Dispo: home today with sister. S: c/o pain overnight. no nausea, no vomiting. IV dilaudid helped this morning. O: alert, nad, sitting up at bedside after eating breakfast. appears comfortable. states pain is an "8" no jaundice ctab anteriorly rrr abd soft, +BS, appropriately tender, inc's cdi 12/14/16 09:55 Objective: Vital Signs Temp Pulse Resp BP Pulse Ox 37.0 C 64 18 116/74 94 12/14/16 07:55 12/14/16 07:55 12/14/16 07:55 12/14/16 07:55 12/14/16 07:55 12/13/16 12/14/16 12/15/16 05:59 05:59 05:59 Intake Total 500 Output Total 400 Balance 100 ICD10 Worksheet Patient Problems: Problems Problem Status Onset Abdominal pain Acute Acute cholecystitis Acute
--- NOTE | 2016-12-14 10:44 | ASDISCHSUM ---
Discharge Information Plan Status:Home with No Needs Medically Cleared to Leave: Discharge Date: CM D/C Disposition:Home, Routine, Self-Care ADT D/C Disposition:Home, Routine, Self-Care Projected Discharge Date: Transportation at D/C:Family Discharge Delay Reason: Follow-Up Date: Discharge Slot: Final Diagnosis: Placement Information Patient Contact Information Contact Name:TIFFANIEAUGUSTINEYASIRCarissa Relationship: Address: Home Phone: Work Phone: City: Alternate Phone: State/[place] Code: Email: Financial Information Financial Class:MD Primary Plan Desc:[employer] [place] Primary Plan Number:[id number] Secondary Plan Desc: Secondary Plan Number: Assessment Information [facility] Initial CM Assessment Living Arrangements What is your living Answers: Alone arrangement? Who do you live with? Type Of Residence Type of Residence Facility Name Notes: Pt has been recently living in car. Discharge Plan Comments Coordination Status Comments Notes: Spoke w/pt re; dc poc. Pt states was unable to keep the room he was renting d/t a series of unfortunate events. Has been sleeping in car, but says he can stay with his sister tomorrow night. 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 CM notified surgical PA, she will dc pt tomorrow, CM available for any changes. Date Signed: 12/13/2016 02:08 PM Electronically Signed By:Sara Pradhan Intervention Information
--- NOTE | 2016-12-14 10:46 | ASMTCMCOM ---
CM Note CM Note Notes: Per bedside RN, Pt. is indeed d/cing independently today to his sister's home. Sister to pick him up. Date Signed: 12/14/2016 10:46 AM Electronically Signed By:Jasmin Mcnally
[2016-12-14] MEDS ORDERED: IBUPROFEN 800 MG TAB PO ONE (12:45)
[2016-12-14] MEDS: OXYCODONE/APAP 5/325 TAB PO PRN ×2 (18:06→22:22)
[2016-12-14] MEDS ORDERED: IBUPROFEN 600 MG TAB PO PRN (18:40)
[2016-12-15] MEDS: OXYCODONE/APAP 5/325 TAB PO PRN ×2 (02:30→08:11)
[2016-12-15 08:08] VITALS: BP 107/59; PULSE 64; RESP 18; TEMP 98; O2SAT 97
[2016-12-15] MEDS: ENOXAPARIN 40 MG/0.4 ML SYR SC SCH (08:11)
--- NOTE | 2016-12-15 08:58 | SOAPPROG ---
SOAP Progress Note Assessment/Plan: Assessment/Plan: 31 Y M s/p lap desiree. POD#3. Pain controlled now. Patient asking for higher dose percocet to go home with. He appears comfortable, is eating well, and is in no distress. dispo: home today. S: pain is better. percocet helping despite itching. O: alert, nad, appears comfortable. no jaundice ctab anteriorly, no wob rrr abd very soft, +BS, appropriately tender, inc's cdi 12/15/16 08:57 Objective: Vital Signs Temp Pulse Resp BP Pulse Ox 36.7 C 64 18 107/59 L 97 12/15/16 08:00 12/15/16 08:00 12/15/16 08:00 12/15/16 08:00 12/15/16 08:00 12/14/16 12/15/16 12/16/16 05:59 05:59 05:59 Intake Total 500 600 Output Total 400 Balance 100 600 ICD10 Worksheet Patient Problems: Problems Problem Status Onset Abdominal pain Acute Acute cholecystitis Acute
--- NOTE | 2016-12-15 09:19 | GDS ---
[f rep st] DISCHARGE SUMMARY DISCHARGE DIAGNOSIS: Acute cholecystitis with cholelithiasis. PROCEDURES: Laparoscopic cholecystectomy. INTRAOPERATIVE FINDINGS: Patient is found to have hydrops of the gallbladder with significant adhes ions to the gallbladder, with small stones and small ducts. SPECIAL TESTS: CT scan of the abdomen and pelvis on 12/12/2016, showed active acalculous cholecysti tis. Please see report for details. Ultrasound of the abdomen on 12/12/2016, showed cholelithiasis with gallbladder sludge and wall thickening, suggestive of acute cholecystitis. Again, please see report for full details. HOSPITAL COURSE: The patient is a 31-year-old male, who presented to the emergency department compl aining of worsening mid abdominal pain, with nausea. No vomiting, fevers, or bowel movement changes . He was found to have acute cholecystitis with cholelithiasis. He was brought to the operating ro om and underwent a laparoscopic cholecystectomy. The procedure was uncomplicated, and he tolerated it well. The patient's postoperative course was complicated by pain problems. Adjustments were made, and he trialed both Percocet and [place]. He required some IV Dilaudid for pain control. He denied any naus ea or fevers. He was eating well and appeared comfortable at exam. Ultimately, ibuprofen was added and Percocet was controlling his pain. He did not have signs of a leak or retained stone. DISCHARGE INSTRUCTIONS: Patient was discharged to home in stable condition with a prescription for ibuprofen and Percocet. He was to follow up in our office in 2 weeks or sooner if he had problems o r concerns. He was to avoid lifting anything over 10-15 pounds. /[id number]/MODL
== END 2016-12-15 11:35 | disposition home or self-care (01) | DRG 419 ==
LOC: CED 10:14 → CEDHOLD 12:51 → F3E 15:10 → OBSVTOIN 12-13 14:40
PROVIDERS: ADMIT Surgery; ATTEND Surgery
PROC: 0FT44ZZ Resection of Gallbladder, Percutaneous Endoscopic Approach (ICD-10-PCS; principal; 2016-12-12 16:00)
DX: K80.00 Calculus of gallbladder with acute cholecystitis without obstruction (principal)
CPT/HCPCS: 74177-PO; 76705-PO; 80048-PO; 80076-PO; 83690-PO; 85025-PO; 96374; G0378; J0690; J1100; J1170; J1335; J1650; J2250; J2405; J2704; J3010; Q9967

== ENCOUNTER 2017-04-07 20:07 | Inpatient (IN) | payer MEDICAID ==
[2017-04-07] MEDS ORDERED: NALOXONE HCL 2 MG/2 ML SYR IVP ONE (20:10)
[2017-04-07] MEDS: NALOXONE HCL 0.4 MG/ML INJ IVP ONE ×2 (20:12→20:54)
[2017-04-07] MEDS ORDERED: IOPAMIDOL (ISOVUE 370) 100 ML BTL IV ONE (20:13)
[2017-04-07] MEDS ORDERED: NS 1,000 ML IV ONE (20:15)
[2017-04-07] MEDS ORDERED: NALOXONE HCL 2 MG in D5W 500 ML IV SCH (20:15)
[2017-04-07] MEDS ORDERED: NALOXONE HCL 0.4 MG/ML INJ IVP ONE (20:19)
[2017-04-07 20:20] LABS: PLATELET COUNT 257 10^3/uL (150-400)
--- NOTE | 2017-04-07 20:21 | CPEKG ---
Heart Rate: 74 RR Interval: 811 P-R Interval: 160 QRSD Interval: 102 QT Interval: 396 QTC Interval: 440 P Round O: 32 QRS Round O: -41 T Wave Round O: 25 EKG Severity - OTHERWISE NORMAL ECG - EKG Impression: SINUS RHYTHM EKG Impression: LEFT AXIS DEVIATION Electronically Signed By: Mely Keith 07-Apr-2017 22:50:05
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
[2017-04-07] MEDS ORDERED: NALOXONE HCL 0.4 MG/ML INJ IVP PRN (21:12)
[2017-04-07] MEDS ORDERED: FAMOTIDINE 20 MG/NACL 50 ML IV SCH (21:15)
[2017-04-07] MEDS ORDERED: NS 1,000 ML IV SCH (21:30)
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
--- NOTE | 2017-04-08 08:58 | SOAPPROG ---
SOAP Progress Note Assessment/Plan: Assessment: tertiary exam: Totally alert and cooperative and responsive / no neck pain in full range of motion / neuro exam completely intact/ chest clear/ cor regular rhythm / abdomen nontender/ extremities full pulsesAnd full range of motion Cervical collar DC did Plan: advance diet and transfer to [facility] 04/08/17 08:56 Objective: Vital Signs Temp Pulse Resp BP Pulse Ox 36.7 C 78 12 112/63 96 04/08/17 08:00 04/08/17 08:00 04/08/17 08:00 04/08/17 08:00 04/08/17 08:00 04/07/17 04/08/17 04/09/17 05:59 05:59 05:59 Intake Total 2010 Output Total 1800 Balance 210 ICD10 Worksheet Patient Problems: Problems Problem Status Onset Altered mental status Acute Strangulation or suffocation Acute Abdominal pain Acute Acute cholecystitis Acute
[2017-04-08] MEDS: ENOXAPARIN 40 MG/0.4 ML SYR SC SCH (09:38)
[2017-04-08] MEDS: FAMOTIDINE 20 MG TAB PO SCH ×2 (09:39→22:06)
[2017-04-08 09:49] LABS: PLATELET COUNT 225 10^3/uL (150-400)
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
[2017-04-09 07:27] VITALS: BP 136/86; PULSE 71; RESP 18; TEMP 97.8; O2SAT 93
[2017-04-09] MEDS: FAMOTIDINE 20 MG TAB PO SCH (08:30)
[2017-04-09] MEDS: ENOXAPARIN 40 MG/0.4 ML SYR SC SCH (08:30)
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
== END 2017-04-09 09:25 | DRG 922 ==
LOC: EDUNIT# → EEVIPCON 20:51 → F2N 21:40 → OBSVTOIN 04-08 10:05
PROVIDERS: ADMIT Surgery; ATTEND Student in an Organized Health Care Education/Training Program
DX: T71.192A Asphyxiation due to mechanical threat to breathing due to other causes, intentional self-harm, initial encounter (principal); G93.40 Encephalopathy, unspecified; F32.9 Major depressive disorder, single episode, unspecified; F10.129 Alcohol abuse with intoxication, unspecified; E87.0 Hyperosmolality and hypernatremia; N17.9 Acute kidney failure, unspecified; R40.2432 Glasgow coma scale score 3-8, at arrival to emergency department
CPT/HCPCS: 80305; 82947-QW; 92523-GN; 96374; 97161-GP; 97165-GO; G0378; G0480; J1650; J2310; Q9967

== ENCOUNTER 2017-04-09 09:50 | Inpatient (IN) | payer MEDICAID ==
[2017-04-09] MEDS ORDERED: MAGNESIUM HYDROXIDE 30 ML UDCUP PO PRN (10:18)
[2017-04-09] MEDS ORDERED: chlordiazePOXIDE 25 MG CAP PO PRN (10:18)
[2017-04-09] MEDS ORDERED: PROMETHAZINE HCL 25 MG TAB PO PRN (10:18)
[2017-04-09] MEDS ORDERED: IBUPROFEN 200 MG TAB PO PRN (10:18)
[2017-04-09] MEDS ORDERED: MAG HYDROX/AL HYDROX/SIMETH 30 ML UDCUP PO PRN (10:18)
[2017-04-09] MEDS ORDERED: PROMETHAZINE HCL 25 MG SUPPR PR PRN (10:18)
[2017-04-09] MEDS ORDERED: THIAMINE HCL 100 MG TAB PO ONE ×2 (10:18→13:20)
[2017-04-09 11:33] VITALS: O2SAT 95
[2017-04-09] MEDS ORDERED: hydrOXYzine HCL 25 MG TAB PO PRN (13:41)
[2017-04-09] MEDS ORDERED: NALTREXONE HCL 50 MG TAB PO SCH (13:45)
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
[2017-04-09] MEDS ORDERED: QUEtiapine FUMARATE 25 MG TAB PO SCH (21:00)
[2017-04-10] MEDS ORDERED: QUEtiapine FUMARATE 25 MG TAB PO SCH (08:54)
[2017-04-10] MEDS ORDERED: PROPRANOLOL HCL 10 MG TAB PO PRN (09:12)
[2017-04-10] MEDS: THIAMINE HCL 100 MG TAB PO SCH (09:14)
[2017-04-10] MEDS: MULTIVITAMINS 1 EACH TAB PO SCH (09:14)
[2017-04-10] MEDS: NALTREXONE HCL 50 MG TAB PO SCH (09:14)
[2017-04-10] MEDS: FOLIC ACID 1 MG TAB PO SCH (09:14)
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
[2017-04-10 20:57] VITALS: RESP 16
[2017-04-11 06:57] VITALS: BP 117/74; PULSE 86; TEMP 97.3
[2017-04-11] MEDS: MULTIVITAMINS 1 EACH TAB PO SCH (08:47)
[2017-04-11] MEDS: FOLIC ACID 1 MG TAB PO SCH (08:47)
[2017-04-11] MEDS: THIAMINE HCL 100 MG TAB PO SCH (08:47)
[2017-04-11] MEDS: NALTREXONE HCL 50 MG TAB PO SCH (08:47)
[2017-04-11] MEDS ORDERED: QUEtiapine FUMARATE 25 MG TAB PO SCH (11:15)
--- NOTE | 2017-04-11 16:29 | SOAPPROG ---
SOAP Progress Note Assessment/Plan: Assessment: Tinea corporis. We will treat with topical antifungal. 04/11/17 16:29 Subjective: Complains of irritated area on his left lower abdomen. He said he had a belt buckle that irritated his skin and reports a history of allergies to contact with metal. This was about 3 and half weeks ago. The irritated area itches. Objective: Vital Signs Temp Pulse Resp BP Pulse Ox 36.3 C 86 16 117/74 95 04/11/17 06:55 04/11/17 06:55 04/11/17 06:55 04/11/17 06:55 04/11/17 06:55 Physical Exam - Physical Exam General Appearance: WD/WN, alert, no apparent distress Skin: other (Left lower abdomen with approximately 4 cm area of erythema with some excoriation, central clearing and satellite lesions.) ICD10 Worksheet Patient Problems: Problems Problem Status Onset Alcohol use disorder, severe, dependence Acute Bipolar II disorder Acute Depressive disorder Acute Abdominal pain Acute Acute cholecystitis Acute Altered mental status Acute Strangulation or suffocation Acute
[2017-04-11] MEDS ORDERED: CLOTRIMAZOLE 1% 15 GM CRTUBE TP SCH (18:00)
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
== END 2017-04-11 18:25 | disposition home or self-care (01) | DRG 885 ==
LOC: BBEH 09:50
PROVIDERS: ADMIT Psychiatry & Neurology Psychiatry; ATTEND Psychiatry & Neurology Psychiatry
DX: F31.81 Bipolar II disorder (principal); F43.10 Post-traumatic stress disorder, unspecified; R41.9 Unspecified symptoms and signs involving cognitive functions and awareness; F10.10 Alcohol abuse, uncomplicated; B35.4 Tinea corporis; T71.1 Asphyxiation due to mechanical threat to breathing
CPT/HCPCS: 84481-90

== ENCOUNTER 2017-04-22 06:34 | Emergency (ER) | payer MEDICAID ==
--- NOTE | 2017-04-22 06:38 | EDPHY ---
H & P Time Seen by Provider: 04/22/17 06:39 HPI/ROS: Chief complaint: Fever, chills, cough. HPI: Medically stable 31-year-old male who is approximately 10 days status post discharge from local psychiatric facility. I reviewed the prior notes and on April 09 he had attempted hanging on the way to the [facility]. He was admitted to [facility] for 24 hr for cerebral anoxia with normalization of mental status. Thereby he [facility] He states that he has been doing well, forward thinking, no suicide ideation, and no hallucinations. He has been ill for approximately 24 hr with dry cough, runny nose, body aches, and fever as last recorded yesterday morning at 1:02 a.m. 0.1. He has had no shaking chills or rigors. He did not get the seasonal influenza vaccination. He has had a history of pneumonia in the past but that was remote. He actually has had no significant exposure to his knowledge with respect to strep throat or influenza etc. He did take some NyQuil for symptomatic relief and felt somewhat better ROS: Constitutional - see above Eyes - no discharge, or injection ENT - no earache, change in hearing, difficulty swallowing, sore throat. Respiratory - his cough has been dry. He has a tightness in his chest when he coughs however he does not feel that he has been wheezing. He does have a history of seasonal allergies and "he fever related asthma Musculoskeletal - diffuse body aches Integument - no rashes. Neurological - no headache, numbness, tingling, or paresthesias. No focal motor weakness. Immunological - no swelling or lymphadenopathy 10 point ROS otherwise negative Smoking Status: Never smoked Physical Exam: Gen: Well developed, well nourished. Nontoxic. Low-grade fever here. VSS. Dry sounding cough on exam at the bedside HEENT: Normocephalic. Ears: TMs are clear. Hearing normal. Eyes: PERRL. No conjunctival injection or pallor. no jaundice. Nose: No nasal discharge. Sinuses are nontender. Throat: Membranes are moist. Oropharynx is with mild erythema or exudate. Normal phonation. No adenopathy Neck: Trachea is in the ML. No laryngeal tenderness. No adenopathy Lungs: Good air entry into both lungs. No rales rhonchi or wheezes. No air hunger. No respiratory distress. Skin: Good color, without pallor. There is no diaphoresis. Skin is warm and dry , without diaphoresis. Intact without rashes Constitutional: Initial Vital Signs Temperature (C) 37.5 C 04/22/17 06:44 Heart Rate 102 H 04/22/17 06:44 Respiratory Rate 18 04/22/17 06:44 Blood Pressure 138/87 H 04/22/17 06:44 O2 Sat (%) 95 04/22/17 06:44 O2 Delivery Mode Room Air Allergies/Adverse Reactions: No Known Allergies Allergy (Verified 04/22/17 06:41) Home Medications: Medication Instructions Recorded Benzonatate 200 mg PO TID PRN #28 capsule 04/22/17 Oseltamivir Phosphate [Tamiflu 75 75 mg PO BID #10 cap 04/22/17 mg (*)] Medical Decision Making ED Course/Re-evaluation: He has no clinical findings to suggest strep throat furthermore, he has no sore throat. Influenza swab was taken, ultimately + Given underlying psychiatric illness and 21st duration of symptoms he will be recommended to start template. Chest x-rays performed as follows: Chest x-ray: Two view chest. Interpreted by me, contemporaneously. Films viewed by me on the PACS system. Normal mediastinum. Normal lung bryant. No effusions. Normal chest. Unchanged when compared to the chest x-ray of April 09, 2017 I reviewed with the patient that no matter what is is underlying illness he is significantly contagion thereby she remained at home and not expose others. He will have a 5 day excuse due to the propensity for influenza as we are in a widespread outbreak, as per the CDC Differential Diagnosis: Diagnostic considerations include, but are not limited to, the following: URI, sinusitis, pharyngitis, otitis media, pneumonia, allergy, influenza, strep throat. Departure - Departure Disposition: Home, Routine, Self-Care Clinical Impression: Influenza-like illness, Influenza A virus present Condition: Good Instructions: Upper Respiratory Infection in Children (ED) Additional Instructions: May continue to use your NyQuil or try the benzonatate. Either 1 should work pretty well for your cough Referrals: Steven Riggins MD [Medical Doctor] - 2-3 days, if not improved Stand Alone Forms: Statement of Treatment, Work Excuse Prescriptions: Benzonatate 200 mg PO TID PRN #28 capsule PRN Reason: Cough, Moderate Oseltamivir Phosphate [Tamiflu 75 mg (*)] 75 mg PO BID #10 cap
[2017-04-22 06:47] VITALS: BP 138/87; PULSE 102; RESP 18; TEMP 99.5; O2SAT 95
== END 2017-04-22 07:15 | disposition home or self-care (01) ==
LOC: CED 06:34
DX: J10.1 Influenza due to other identified influenza virus with other respiratory manifestations (principal)
CPT/HCPCS: 71046-PO; 87400-PO

== ENCOUNTER 2018-06-02 10:55 | Emergency (ER) | payer MEDICAID ==
[2018-06-02] MEDS ORDERED: ASPIRIN 81 MG CHEWABLE TAB PO ONE (11:12)
[2018-06-02] MEDS ORDERED: DEXAMETHASONE 4 MG TAB PO ONE (11:20)
[2018-06-02] MEDS ORDERED: KETOROLAC 15 MG/1 ML SDV IVP ONE (12:00)
[2018-06-02] MEDS ORDERED: IPRATROPIUM/ALBUTEROL 3 ML DEYVIAL IH ONE (12:27)
[2018-06-02] MEDS ORDERED: IPRATROPIUM/ALBUTEROL 3 ML DEYVIAL ONE (12:29)
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
[2018-06-02 12:59] VITALS: BP 125/68
== END 2018-06-02 12:57 | disposition home or self-care (01) ==
LOC: CED 10:55
DX: R07.89 Other chest pain (principal); J45.31 Mild persistent asthma with (acute) exacerbation; J04.0 Acute laryngitis
CPT/HCPCS: 71046-PO; 84484-ER; 96374-ER; 99284-ER; J1885